=== PATIENT | male | born 1995 | race African-American/Black ===

== ENCOUNTER 2019-01-01 16:24 | Emergency (ER) | payer SELFPAY ==
[~2019-01-01] VITALS: Ht 170.2 cm; Wt 68.2 kg
[~2019-01-01 16:24] MED LIST: ACETAMINOPHEN-C1 TAB PO; AUGMENTIN 875-11 TAB PO; XOPENEX HFA15 GM INH
[2019-01-01 16:42] VITALS: BP 130/69; Ht 170.2 cm; Wt 68.2 kg
[2019-01-01] MEDS ORDERED: ZOVIRAX800 MG PO (20:17)
[2019-01-03 08:10] LABS: RAPID PLASMA REAGIN Non Reactive (Non Reactive)
[2019-01-05 08:08] LABS: HSV 1 DNA (PCR) Negative (Negative); HSV 2 DNA (PCR) Negative (Negative)
== END 2019-01-01 21:05 | disposition home or self-care (01) ==
LOC: D.ER 16:24
PROVIDERS: Family Medicine
DX: L98.8 Other specified disorders of the skin and subcutaneous tissue (principal)

== ENCOUNTER 2020-06-09 11:33 | Emergency (ER) | payer BC ==
[~2020-06-09] VITALS: Ht 165.1 cm; Wt 81.8 kg
[~2020-06-09 11:33] MED LIST changes: +ZOVIRAX800 MG PO
[2020-06-09 11:45] VITALS: BP 115/81; Ht 165.1 cm; Wt 81.8 kg
== END 2020-06-09 12:38 | disposition home or self-care (01) ==
LOC: D.ER 11:33
DX: A64 Unspecified sexually transmitted disease (principal)

== ENCOUNTER 2020-09-06 14:03 | Emergency (ER) | payer BC ==
[~2020-09-06] VITALS: Ht 165.1 cm; Wt 77.3 kg
[2020-09-06 14:13] VITALS: BP 122/79; Ht 165.1 cm; Wt 77.3 kg
== END 2020-09-06 15:37 | disposition home or self-care (01) ==
LOC: D.ER 14:03
DX: S81.841A Puncture wound with foreign body, right lower leg, initial encounter (principal); W01.10XA Fall on same level from slipping, tripping and stumbling with subsequent striking against unspecified object, initial encounter; Y93.9 Activity, unspecified; Y92.9 Unspecified place or not applicable